=== PATIENT | male | born 1960 | race Caucasian/White ===

== ENCOUNTER 2022-07-15 13:25 | Emergency (ER) | payer MEDICAID, SELFPAY ==
--- NOTE | ~2022-07-15 | XR_ITS ---
EXAMINATION: XR finger 5th LT min 2V DATE: 07/15/2022 13:52 INDICATION: Left thumb injury and swelling. TECHNIQUE: 3 views of left thumb were obtained. COMPARISON: None. FINDINGS: Bone alignment is normal. No fracture. There is moderate osteoarthritis of first metacarpop halangeal joint and mild osteoarthritis of first interphalangeal joint and first carpometacarpal join t. IMPRESSION: 1. Polyarticular osteoarthritis. Reviewed, dictated and finalized at location A.
[2022-07-15 13:32] VITALS: BP 189/92; PULSE 61; RESP 16; TEMP 36.2; O2SAT 100
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
[2022-07-15] MEDS: ACETAMINOPHEN 500 MG TABLET 1000 MG PO (15:03)
[2022-07-15] MEDS: IBUPROFEN 400 MG TABLET 800 MG PO (15:03)
== END 2022-07-15 16:16 ==
LOC: ANHED 15:02
PROVIDERS: Emergency Provider Emergency Medicine
DX: S69.92XA Unspecified injury of left wrist, hand and finger(s), initial encounter (principal); M18.9 Osteoarthritis of first carpometacarpal joint, unspecified; M19.042 Primary osteoarthritis, left hand; Y04.0XXA Assault by unarmed brawl or fight, initial encounter
CPT/HCPCS: 73140; 99283; A9270

== ENCOUNTER 2022-08-15 11:13 | Emergency (ER) | payer BC, SELFPAY ==
[2022-08-15 11:26] VITALS: BP 163/82; PULSE 70; RESP 18; TEMP 36.2; O2SAT 99
--- NOTE | 2022-08-15 11:44 | ECG_ITS ---
Measurements Intervals [place] Rate: 67 P: 49 PA: 157 QRS: 29 QRSD: 85 T: 27 QT: 393 QTc: 416 Interpretive Statements SINUS RHYTHM NORMAL ELECTROCARDIOGRAM NO PREVIOUS ECG AVAILABLE FOR COMPARISON Electronically Signed On 08-15-2022 13:36:34 CDT by Ted Sunshine M.D.
[2022-08-15 12:12] LABS: Appearance Urine Clear (Clear); Bilirubin Urine Negative (Negative); Blood Urine Negative (Negative); Color Urine Yellow (Yellow); Glucose Urine UA Negative (Negative); Ketones Urine Negative (Negative); Leukocyte Esterase Ur Negative LEU/UL (Negative); Nitrate Urine Negative (Negative); Protein Urine Negative (Negative); Specific Grav Ur 1.021 (1.001-1.035); Urobilinogen Urine 0.2 mg/dL (<2.0)
[2022-08-15 12:16] LABS: Add Urine Microscopic? NO
[2022-08-15 12:16] LABS: Basophils Absolute Auto 0.1 K/mm3 (0.0-0.1); Eosinophils Absolute Auto 0.1 K/mm3 (0-0.3); Eosinophils Percent Auto 1.3 % (0-4.4); Hematocrit 44.6 % (42.0-52.0); Hemoglobin 15.5 g/dL (14.0-18.0); Immature Granulocyte Absolute 0.02 K/mm3 (0.00-0.031); Immature Granulocyte Percent A 0.3 % (0-0.5); Lymphocytes Absolute Auto 1.75 K/mm3 (0.9-3.2); Lymphocytes Percent Auto 29.2 % (18.3-44.2); Mean Corpuscular HGB Conc 34.8 g/dl (32-36); Mean Corpuscular Volume 92.1 fl (80-100); Mean Platelet Volume 10.2 fl (7.4-10.4); Monocytes Absolute Auto 0.4 K/mm3 (0.1-0.6); Monocytes Percent Auto 6.8 % (2.6-8.5); Neutrophils Absolute Auto 3.7 K/mm3 (1.3-6.7); Neutrophils Percent Auto 61.4 % (45.5-73.1); Platelet Count Result 181 k/mm3 (150-375); Red Blood Count 4.84 M/mm3 (4.6-6.20); Red Cell Distribution Width 12.5 % (11.5-14.5)
[2022-08-15 12:20] LABS: Glucose Point of Care 111 mg/dl (65-105)
[2022-08-15 12:37] LABS: Alanine Aminotransferase 67 U/L (6-50); Albumin Level 4.3 g/dL (3.5-5.1); Alkaline Phosphatase 95 U/L (38-126); Anion Gap 6 mmol/L (8-16); Aspartate Amino Transferase 51 U/L (17-59); Bilirubin,Total 0.4 mg/dL (0.2-1.3); Blood Urea Nitrogen 17 mg/dL (9-20); Carbon Dioxide 28 mmol/L (22-30); Chloride 104 mmol/L (98-107); Estimated CRCL calculation 107 ml/min; Estimated Glomerular Filt Rate > 60; Glucose 100 mg/dL (65-110); Potassium 4.2 mmol/L (3.4-5.0); Sodium 138 mmol/L (137-145)
[2022-08-15 12:51] LABS: SARS-CoV-2 RNA PCR Negative (Negative)
[2022-08-15 13:02] LABS: Barbiturate Screen Urine Negative (Negative); Benzodiazepines Screen Urine Negative (Negative)
[2022-08-15 13:04] LABS: Amphetamine Screen Urine Negative (Negative); Cannabinoid Screen Urine Negative (Negative); Cocaine Screen Urine Negative (Negative); Methadone Screen Urine Negative (Negative); Opiate Screen Urine Negative (Negative); Phencyclidine Screen Urine Negative (Negative)
[2022-08-15 13:08] LABS: Thyroid Stimulating Hormone 0.155 uIU/mL (0.465-4.680)
[2022-08-15 13:11] LABS: Acetaminophen < 10 ug/mL (10-30); Ethanol < 10 mg/dL (<10); Salicylate < 1.0 mg/dL (2-20)
--- NOTE | 2022-08-15 13:20 | ED.GENADULT ---
HPI - General Adult General Chief complaint: Psychiatric Symptoms Stated complaint: SUICIDAL IDEATIONS Time Seen by Provider: 08/15/22 11:40 History of Present Illness HPI narrative: 61-year-old male with history of alcohol abuse presented the emergency department for evaluation of suicidal ideation. Patient reports over the last few weeks he has had increased suicidal thoughts. Patient states that [place] and then patient presented to the emergency department for treatment. Patient states he has been staying at a sober living home and did relapse approximately 2 weeks ago. Patient last drank last night. Patient had been taking propranolol and Prozac but has been off of these medications. Patient is hoping to to get [facility] for substance abuse treatment Related Data Allergies Allergy/AdvReac Type Severity Reaction Status Date / Time No Known Allergies Allergy Verified 08/15/22 11:39 Review of Systems Review of Systems: All systems reviewed & are unremarkable except as noted in HPI and below Exam Narrative: APPEARANCE: Well appearing, no pain, no distress, well-nourished. HEAD: normocephalic, atraumatic. EYES: PERRLA/EOMI, conjunctivae clear. NOSE: Normal no drainage NECK: Supple. No adenopathy, no masses. RESPIRATORY: Airway patent, respirations nonlabored. Clear to auscultation bilaterally, no rales, rhonchi, wheezing. CARDIOVASCULAR: Regular rate and rhythm without murmurs rubs or gallops. ABDOMINAL: Soft, nontender, nondistended, normal bowel sounds MUSCULOSKELETAL: Moves all extremities. Strength/ROM intact, No edema, No calf tenderness. NEURO: Alert. Cranial nerves II through XII intact. SKIN: Warm, dry. Normal Color Course Course Emergency Course: 61-year-old male presented the emergency department for evaluation of suicidal ideation. Patient is afebrile with no collagenosis and a hemoglobin of 15.5. Patient's CMP has no significant abnormalities. Patient's SH is 0.155. UA shows no evidence of infection. Patient's salicylates acetaminophen and ethanol were negative. Patient was COVID-negative. Patient is medically cleared and the crisis counselor has been called for evaluation. Patient was updated on the results of his work-up and plan for calling the crisis counselor. Patient was evaluated by the crisis counselors and the patient signed a safety agreement but patient does not have a safe place to go overnight. Patient will be accepted into the [facility] in the morning for substance abuse treatment. I did discuss the case with a nurse and the science manager at [facility]. Patient was prescribed Librium scheduled over the weekend and he was also restarted on his fluoxetine and propranolol. Patient had no evidence of withdrawal at time of discharge from the emergency department. Reevaluation(s) Reevaluation #1: Patient is medically cleared to be evaluated by the crisis counselor. Patient is medically cleared for transport and for inpatient psychiatric placement as needed. Vital Signs Vital signs: Vital Signs Temperature 97.2 F L 08/15/22 11:26 Pulse Rate 70 08/15/22 11:26 Respiratory Rate 18 08/15/22 11:26 Blood Pressure 163/82 H 08/15/22 11:26 Pulse Oximetry 99 08/15/22 11:26 Oxygen Delivery Room Air 08/15/22 11:26 Temperature 97.2 F L 08/15/22 11:26 Pulse Rate 57 L 08/15/22 16:40 Respiratory Rate 16 08/15/22 16:40 Blood Pressure 162/95 H 08/15/22 16:40 Pulse Oximetry 99 08/15/22 11:26 Oxygen Delivery Room Air 08/15/22 11:26 Medical Decision Making Differential Diagnosis Differential Diagnosis: Suicidal ideation, depression, alcohol abuse, alcohol withdrawal Vital Signs Vital Signs: Vital Signs Temperature 97.2 F L 08/15/22 11:26 Pulse Rate 70 08/15/22 11:26 Respiratory Rate 18 08/15/22 11:26 Blood Pressure 163/82 H 08/15/22 11:26 Pulse Oximetry 99 08/15/22 11:26 Oxygen Delivery R
--- NOTE | 2022-08-15 15:35 | PC.NURSE ---
crisis working on crisis inpatient placement.
--- NOTE | 2022-08-15 16:02 | PC.NURSE ---
pt on phone doing crisis screening.
--- NOTE | 2022-08-15 16:05 | PC.NURSE ---
crisis stating that pt can be admitted to their unit in the morning if they have him sign a suicide contract. pt has no plan upon discharge. has no place to go. is currently homeless. pt states he does not feel safe leaving. id like to think i wouldnt do anything . hot metal charger and [facility] made aware.
--- NOTE | 2022-08-15 16:15 | PC.NURSE ---
crisis states pt can be admitted to their inpatient unit tonight at 1800
--- NOTE | 2022-08-15 16:30 | PC.NURSE ---
crisis stating that pt is to be discharged across the [facility] to [facility] and then they will call an ambulance to take him to [facility] so he could be admitted to their detox unit. discussion had between charge gang weigher, edp and crisis.
[2022-08-15 16:39] VITALS: PULSE 57
[2022-08-15] MEDS: FLUoxetine HCL 10 MG CAPSULE 30 MG PO (16:39)
[2022-08-15] MEDS: PROPRANOLOL HCL 10 MG TABLET PO (16:39)
[2022-08-15 16:40] VITALS: BP 162/95; PULSE 57; RESP 16
--- NOTE | 2022-08-15 17:00 | PC.NURSE ---
pt is accepted into [facility] again. can go at 1800
== END 2022-08-15 17:55 ==
PROVIDERS: Emergency Provider Emergency Medicine
DX: R45.851 Suicidal ideations (principal); Z20.822 Contact with and (suspected) exposure to COVID-19
CPT/HCPCS: 36415; 80053; 80307; 81003; 82948; 84443; 85025; 87635; 93005; 99284; A9270